=== PATIENT | male | born 1950 | race Asian ===

== ENCOUNTER 2024-08-26 12:42 | Emergency (ER) | payer MEDICARE, SELFPAY ==
[2024-08-26] VITALS (7 sets, daily range): BP systolic 152–155; BP diastolic 80–97; PULSE 56–70; RESP 16–31; TEMP 36.5; O2SAT 95–98; BMI 28.0
--- NOTE | 2024-08-26 13:09 | EKG_ITS ---
[facility] [address] [place] [address] Test Date: 2024-08-26 Pat Name: Eugenia Sanchez Department: [facility] Room: Gender: Male Planer Stone: LEE : 1950 Requested By: Order Number: [id number] Reading MD: Rene Roy Measurements Intervals Ragan Rate: 55 P: 29 MD: 182 QRS: -15 QRSD: 100 T: 0 QT: 432 QTc: 413 Interpretive Statements Sinus bradycardia Moderate voltage criteria for LVH, may be normal variant ( R in aVL , Danielson product ) Nonspecific ST abnormality Electronically Signed On 08-27-2024 7:53:48 PST by Rene Roy
[2024-08-26 13:28] LABS: Add Manual Diff / Slide Review NO; Basophils Absolute Auto 100 /uL (0-100); Basophils Percent Auto 0.6 % (0-2); Eosinophils Absolute Auto 1200 /uL (0-450); Eosinophils Percent Auto 9.7 % (2-4); Hematocrit 44.2 % (41-53); Hemoglobin 14.7 g/dL (13.5-17.5); Lymphocytes Absolute Auto 2400 /uL (1100-4500); Lymphocytes Percent Auto 20.2 % (25-40); Mean Corpuscular HGB Conc 33.2 % (30-36); Mean Corpuscular Hemoglobin 29.4 PG (26-34); Mean Corpuscular Volume 88.6 fL (80-100); Monocytes Absolute Auto 900 /uL (0-900); Monocytes Percent Auto 7.7 % (3-14); Neutrophils Absolute Auto 7300 /uL (1500-7000); Neutrophils Percent Auto 61.8 % (50-75); Platelet Count 238 X10^3/uL (150-400); Red Blood Cell Count 4.99 X10^6/uL (4.5-5.9); Red Cell Distribution Width 13.7 % (11.6-14.8); White Blood Cell Count 11.9 X10^3/uL (4.5-11.0)
--- NOTE | 2024-08-26 13:35 | ED_ITS ---
[facility] - General Adult General Chief complaint: Abdominal Pain Stated complaint: Abd/Back Pain Time Seen by Provider: 08/26/24 13:34 Source: patient Mode of arrival: Ambulatory History of Present Illness HPI narrative: 74-year-old gentleman with a history of BPH and hyperlipidemia presents with ongoing abdominal pain. This has been present for almost a month, he was initially seen at [facility] complaining of upper abdominal bandlike pain he had a complete abdominal ultrasound that did not show evidence of cholecystitis, gallstones or renal abnormalities. He was seen again at [facility] on August 23 with similar pain complaints a CT scan of the abdomen was done that again showed no specific findings. Mentioned of diverticulosis but no diverticulitis. Apparently the physician there mentioned that there was nothing else he could do so the patient comes to [facility] still complaining of bandlike pain in the upper abdomen. He states that he is done ?everything? which includes an ice pack to the middle of his abdomen. He feels that he has not been having regular bowel movements but he also has not been eating as much. No fevers, nausea or vomiting. Notes he did have a screening colonoscopy last year that was unremarkable. He denies night sweats fevers or weight loss Related Data Allergies Allergy/AdvReac Type Severity Reaction Status Date / Time No Known Drug Allergies Allergy Verified 08/26/24 13:04 Review of Systems Review of Systems Narrative: Pertinent positive and negative findings as per HPI Patient History Medical History (Updated 08/26/24 @ 15:07 by Cathi Rock MD) BPH (benign prostatic hyperplasia) Hyperlipidemia Social History Smoking Status: Former smoker Smoking Status: Former smoker Substance Use Type: does not use Exam Initial Vital Signs Initial Vital Signs: Vital Signs Temperature 97.7 F 08/26/24 12:55 Pulse Rate 70 08/26/24 12:55 Respiratory Rate 16 08/26/24 12:55 Blood Pressure 152/80 H 08/26/24 12:55 Pulse Oximetry 96 08/26/24 12:55 Oxygen Delivery Method Room Air 08/26/24 12:55 General: Healthy appearing, seems uncomfortable but in no acute distress. Able to give a complete and coherent history. HEENT: Moist mucous membranes, normal sclera with reactive pupils, Respiratory: Lungs are clear to auscultation, no wheezing no rales no rhonchi. Full and symmetrical air movement Cardiac: Regular rate and rhythm no murmurs no bruits Abdomen: Soft, nontender, no reproducible pain with palpation, hyperactive bowel tones, no flank pain Skin: Warm and dry, no rashes Neurologic: Grossly neurologically intact with no obvious asymmetries or abnormalities Extremities: No trauma, well perfused Psych: Cooperative, appropriate insight and affect Course Orders Ordered: ED Orders 08/26/24 13:04 EKG-12 Lead Stat 08/26/24 13:17 Complete Blood Count AUTO DIFF Stat Comprehensive Metabolic Panel Stat Lipase Stat 08/26/24 14:11 XR abdomen 1V Stat Ondansetron HCl (Ondansetron 4 Mg/2 Ml Inj) 4 mg IV NOW PRN PRN Reason: Nausea And Vomiting Ondansetron HCl (Ondansetron 4 Mg Odt) 4 mg PO NOW PRN PRN Reason: Nausea And Vomiting Vital Signs Vital signs: Vital Signs - 8 hr 08/26/24 12:55 08/26/24 13:26 08/26/24 13:30 Temperature 97.7 F Pulse Rate 70 63 63 Respiratory Rate 16 23 19 Blood Pressure 152/80 H Pulse Oximetry 96 97 97 Oxygen Delivery Method Room Air 08/26/24 14:00 08/26/24 14:30 Temperature Pulse Rate 65 56 L Respiratory Rate 23 18 Blood Pressure Pulse Oximetry 95 98 Oxygen Delivery Method Medical Decision Making Lab Data 08/26/24 13:17 08/26/24 13:17 Labs: Lab Results 08/26/24 Range/Units 13:17 WBC 11.9 H (4.5-11.0) X10^3/uL RBC 4.99 (4.5-5.9) X10^6/uL Hgb 14.7 (13.5-17.5) g/dL Hct 44.2 (41-53) % MCV 88.6 (80-100) fL MCH 29.4 (26-34) PG MCHC 33.2 (30-36) % RDW 13.7 (11.6-14.8) % Plt Count 238 (150-400) X10^3/uL Neut % (Auto) 61.8 (50-75) % Lymph % (Auto) 20.2 L (25-40) % Luce % (Auto) 7.7 (3-14) % Eos % (Auto) 9.7 H (2-4) % Baso % (Auto) 0.6 (0-2) % Neut # (Auto) 7300 H (3687-4396) /uL Lymph # (Auto) 2400 (4799-9296) /uL Luce # (Auto) 900 (0-900) /uL Eos # (Auto) 1200 H (0-450) /uL Baso # (Auto) 100 (0-100) /uL Sodium 139 (137-145) mmol/L Potassium 3.9 (3.4-5.1) mmol/L Chloride 106 (98-107) mmol/L Carbon Dioxide 25 (22-32) mmol/L BUN 17 (9-20) mg/dL Creatinine 1.04 (0.66-1.25) mg/dL Estimated GFR > 60 (>60) mL/min BUN/Creatinine Ratio 16.3 (6-22) Glucose 106 (80-110) mg/dL Calcium 8.9 (8.4-10.2) mg/dL Total Bilirubin 0.8 (0.2-1.3) mg/dL AST 37 (17-59) IU/L ALT 29 (<50) IU/L Alkaline Phosphatase 94 (38-126) U/L Total Protein 7.6 (6.3-8.2) g/dL Albumin 4.4 (3.5-5.0) g/dL Globulin 3.2 (1.7-4.1) g/dL Albumin/Globulin Ratio 1.4 (1.0-2.8) Lipase 41 (23-300) U/L [facility] Narrative Medical decision making narrative: CC: Abdominal pain Complicating co-morbidities: This is now his 3rd ER visit for same. Lab work, abdominal ultrasound and abdominal CT has been unrevealing Data collected from: patient Medical records reviewed: Patient does have imaging studies and discharge information from the to ER visits at [facility] on July 30 and August 23 Differential considered: Gallbladder dysfunction without gallstones, constipation, functional abdominal pain Exam documented above, pertinent findings include: Exam is entirely benign. Patient appears uncomfortable but none of this is reproducible with palpation Lab Test results independently reviewed as above. Pertinent findings: CBC is unremarkable Chemistries are entirely reassuring Lipase is normal Independently reviewed EKG: sinus bradycardia at a rate of 55 without acute ischemic changes Imaging studies independently reviewed: X-ray of the abdomen shows no free air, quite a bit of stool in the right side of the colon and quite a bit of air and colon distention at the hepatic and splenic flexures were to use where he is complaining he is hurting the most Treatments: Ibuprofen and Tylenol Discussion: 74-year-old gentleman with abdominal pain intermittently for the last month. To ER visits with thorough workup including ultrasound that does not show gallstones or other pathology, CT scan done on the 23 August that did not show any acute findings. Patient comes in today and has normal blood work. X-ray suggests moderate amount of fecal loading on the right side and the distended colon in the areas of his tenderness suggest that his pain is related to constipation. I am not finding signs of infection, free air, surgical abdomen or reason for hospitalization at this time. Findings reviewed with him, recommended MiraLax until he begins to have a bowel movement. Talked about ibuprofen and Tylenol for pain control. At this point he is safe for discharge Discharge Plan Departure Patient Disposition: Home Clinical Impression: Abdominal pain Qualifiers: Abdominal location: generalized Qualified Code(s): R10.84 - Generalized abdominal pain Instructions: DI for Constipation Activity Restrictions/Additional Instructions: Thank you for coming in today, I am sorry that you are continuing to suffer with abdominal pain Based on the ultrasound and CT scan work done at [facility] you do not have gallstones, kidney stones that are causing problems, any masses or tumors in your abdomen, and no explanation for the pain that you have been experiencing. With normal blood work in this setting 1 of the more common reasons is constipation. We did an x-ray in the emergency department today and it shows quite a bit of stool on the right side that certainly looks like it could be uncomfortable. You also have quite a bit of air stuck in your colon in the upper right in the upper left, both areas that you are complaining of the most pain. In the absence of infection, surgical findings or any other issues I am going to suggest that you try using MiraLax to clean out your colon. MiraLax is [id number], please start with 1 cap full of the white powder and a large glass of water. In an hour have another cap full in a large glass of water. Continue this hourly until you begin to notice your bowels are moving. If you do have a lot of air and stool come out and are still having problems, you need to follow up with your primary care physician If you find that you are developing fevers, your belly is distended and it is difficult to walk, you develop any new issues or concerns you can certainly return to the ER Stand Alone Forms: Patient Portal/API/Survey
[2024-08-26 13:42] LABS: Alanine Aminotransferase 29 IU/L (<50); Albumin 4.4 g/dL (3.5-5.0); Albumin Globulin Ratio 1.4 (1.0-2.8); Alkaline Phosphatase 94 U/L (38-126); Aspartate Aminotransferase 37 IU/L (17-59); BUN Creatinine Ratio 16.3 (6-22); Bilirubin Total 0.8 mg/dL (0.2-1.3); Blood Urea Nitrogen 17 mg/dL (9-20); Calcium 8.9 mg/dL (8.4-10.2); Carbon Dioxide 25 mmol/L (22-32); Chloride 106 mmol/L (98-107); Estimated Glomerular Filt Rate > 60 mL/min (>60); Globulin 3.2 g/dL (1.7-4.1); Glucose 106 mg/dL (80-110); HEMOLYSIS 18 (0-50); Lipase 41 U/L (23-300); Potassium 3.9 mmol/L (3.4-5.1); Sodium 139 mmol/L (137-145); Total Protein 7.6 g/dL (6.3-8.2)
--- NOTE | 2024-08-26 14:11 | DI.RAD.S_ITS ---
PROCEDURE: XR ABDOMEN 1V INDICATIONS: abdominal pain TECHNIQUE: Two views of the abdomen acquired. COMPARISON: None. FINDINGS: Surgical changes and devices: None. Bowel: Bowel gas pattern is nonobstructive. Stool is seen within the colon, most notably at the hepatic flexure. Soft tissues: No suspicious abdominal calcifications. Visualized solid organ contours appear normal in size. Bones: No suspicious bony lesions. IMPRESSION: Nonobstructive bowel gas pattern. Moderate fecal load. Approved by: Micheline Gerber M.D.,Ph.D. on 08/26/2024 at 14:41
[2024-08-26] MEDS: ACETAMINOPHEN 325 MG TABLET PO (15:08)
[2024-08-26] MEDS: IBUPROFEN 400 MG TABLET PO (15:08)
== END 2024-08-26 15:19 | disposition home or self-care (01) ==
PROVIDERS: Emergency Provider Emergency Medicine
DX: R10.84 Generalized abdominal pain (principal); R00.1 Bradycardia, unspecified
CPT/HCPCS: 36415; 74018; 80053; 83690; 85025; 93005; 99283; 99284

== ENCOUNTER → 2024-10-02 17:09 | Outpatient (CLI) | payer MEDICARE, OTHER, SELFPAY ==
--- NOTE | 2024-10-02 17:10 | DI.MRI.S_ITS ---
PROCEDURE: MR HEAD/BRAIN WO/W CON INDICATIONS: non-small cell cancer rt lung TECHNIQUE: Noncontrast axial T1 spin echo, axial T2 fast spin echo, sagittal and axial FLAIR, coronal T2 fast spin echo, axial gradient echo, axial diffusion and ADC through the brain. After the administration of contrast, axial and coronal and sagittal T1 spin echo with fat saturation through the brain. COMPARISON: None. FINDINGS: Image quality: Excellent. CSF spaces: Basal cisterns are patent. Small left anterior middle cranial fossa arachnoid cyst.. Ventricles are normal in size and shape. Brain: No midline shift. No intracranial bleeds or masses. No abnormal intracranial enhancement. There is cerebral volume loss for age. There is periventricular white matter chronic small vessel ischemic change. The brainstem appears normal. Diffusion-weighted images demonstrate no acute infarct. No chronic ischemic insults. Normal intravascular flow voids are present. Skull and face: Calvarial marrow is normal in signal. Orbits appear normal. Sinuses: Sinuses and mastoids appear clear. IMPRESSION: No evidence of intracranial metastatic disease. No acute intracranial abnormalities or abnormal intracranial enhancement. Mild age-related global volume loss and chronic microvascular ischemic changes. Dictated by: Pan Wong M.D. on 10/04/2024 at 9:43 Approved by: Pan Wong M.D. on 10/04/2024 at 9:53
== END ==
PROVIDERS: Referring Provider Internal Medicine Pulmonary Disease; Visit Provider Internal Medicine Pulmonary Disease
DX: C34.2 Malignant neoplasm of middle lobe, bronchus or lung (principal); C34.91 Malignant neoplasm of unspecified part of right bronchus or lung; G93.0 Cerebral cysts
CPT/HCPCS: 70553; A9579